=== PATIENT | male | born 1985 | race African-American/Black ===

== ENCOUNTER 2017-08-06 09:04 | Emergency (ER) | payer OTHER ==
[~2017-08-06] VITALS: Ht 185.4 cm; Wt 105.9 kg
[2017-08-06 09:14] VITALS: BP 135/83; PULSE 75; TEMP 36.9; O2SAT 99; Ht 185.4 cm; Wt 105.9 kg
[2017-08-06] MEDS ORDERED: MIRT15TA PO (09:35)
[2017-08-06] MEDS ORDERED: ESCI10TA17 PO (09:35)
[2017-08-06] MEDS ORDERED: ZOLP10TA PO (09:35)
[2017-08-06] MEDS ORDERED: PENI500T2 PO (10:10)
--- NOTE | 2017-08-06 17:54 | EMERGENCY ROOM VISIT NOTE ---
History Report prepared by Maria M: Constance Mir Under the Supervision of: Dr. Jeff Monroy M.D. First contact with patient: 09:42 Chief Complaint: OTHER COMPLAINT Stated Complaint: LUMP IN NECK-UNDER CHIN, VERY PAINFUL History of Present Illness The patient is a 31 year old male who presents to the Emergency Room with complaints of a worsening neck pain for the past week. Last week the front of his neck was sore and swollen bilaterally. Yesterday he noticed a painful lump on the right side of his neck. He rates his pain as a 6/10 in severity. He states that for the past week he has had a productive cough and sore throat. He has been taking ibuprofen for his pain and has had some relief. He has not been sleeping well for the past couple of days due to his symptoms. The patient denies fevers, congestion, visual symptoms, eye pain, dental pain, vomiting, and testicular pain. His immunizations are up to date and he has not been exposed to mumps. Source of History: patient Onset: 1 week ago Position: neck Symptom Intensity: 6/10 Quality: other (sore) Timing: worsening Modifying Factors (Relieving): ibuprofen Associated Symptoms: + sorethroat, + cough, No fevers, No vomiting Note: Pt denies congestion, visual symptoms, dental pain, and testicular pain. Review of Systems See HPI for pertinent positives & negatives. A total of 10 systems reviewed and were otherwise negative. Past Medical & Surgical Medical Problems: (1) Hx of traumatic brain injury Family History No pertinent history stated. Social History Smoking Status: Current Every Day Smoker Current/Historical Medications Scheduled Mirtazapine (Remeron), 15 MG PO HS Penicillin V Potassium (Veetids), 500 MG PO TID Zolpidem Tartrate (Ambien), 10 MG PO HS Scheduled PRN Escitalopram (Lexapro), 10 MG PO UD PRN for PANIC ATTACK Allergies Coded Allergies: No Known Allergies (Unverified , 08/06/17) Physical Exam Vital Signs Date Time Temp Pulse Resp B/P (MAP) Pulse Ox O2 Delivery O2 Flow Rate FiO2 08/06/17 09:14 36.9 75 18 135/83 99 Room Air Physical Exam Constitutional: Vital signs reviewed. Eyes: Pupils are equal round reactive to light. Conjunctiva are noninjected. ENT: Pharynx erythematous without exudate. Mucous membranes are moist. Neck supple without meningeal signs, right anterior cervical lymphadenopathy measuring 2cm with mild tenderness. Respiratory: Clear to auscultation bilaterally. Breath sounds are equal bilaterally. Cardiovascular: Regular rate and rhythm. No rubs or gallops. GI: Soft, nondistended and nontender. Bowel sounds are present. Musculoskeletal: No peripheral edema. Integumentary: No cyanosis. Neurological: The patient is awake and alert. No focal deficits. Psychiatric: Normal affect. Medical Decision & Procedures Laboratory Results Date/Time Source Procedure Growth Status 08/06/17 09:49 Throat Group A Streptococcus Screen - Final SPECIMEN POSITIVE FOR GROUP A BETA ST... Complete 08/06/17 09:49 Throat Group A Streptococcus Screen (ARNUL[facility]) - Final Complete ED Course 0942: The patient was evaluated in room B5. A complete history and physical exam was performed. 1003: I reassessed the patient at this time. He is resting comfortably. I discussed the results and treatment plan with patient. I answered all pertaining questions that he had. He expressed understanding and verbalized agreement. The patient will be discharged home. Medical Decision This is a 31-year-old male presents with cold symptoms and neck pain. Differential diagnosis includes strep pharyngitis, cervical lymphadenopathy, viral syndrome, mass .I did perform a limited focused review of portions of the patient's old chart on the electronic medical record. The patient has had no prior visits to this hospital. I did evaluate the patient as noted above. I did obtain a rapid strep test. This was positive. I did discuss the test results with the patient. He was discharged with a prescription for 10 days of penicillin. Medication Reconcilliation Current Medication List: was personally reviewed by me Blood Pressure Screening Patient's blood pressure: Elevated blood pressure Blood pressure disposition: Elevated BP felt to be situational, Referred to PCP Impression Primary Impression: Strep pharyngitis Scribe Attestation The scribe's documentation has been prepared under my direct and personally reviewed by me in its entirety. I confirm that the note above accurately reflects all work, treatment, procedures, and medical decision making performed by me. Departure Information Dispostion Home / Self-Care Prescriptions Penicillin V Potassium (VEETIDS) 500 Mg Tab 500 MG PO TID for 10 Days, #30 TAB Prov: Jeff Monroy M.D. 08/06/17 Referrals No Doctor, Assigned (PCP) Forms HOME CARE DOCUMENTATION FORM, IMPORTANT VISIT INFORMATION, WORK / SCHOOL INSTRUCTIONS Patient Instructions ED Strep Pharyngitis [place], My [facility] Additional Instructions You have been examined and treated today on an emergency basis only. This is not a substitute for, or an effort to provide, complete comprehensive medical care. It is impossible to recognize and treat all injuries or illnesses in a single emergency department visit. It is therefore important that you follow up closely with your physician. Call as soon as possible for an appointment. Return for worsening symptoms or if you develop fever, vomiting, difficulty breathing or any other concerning symptoms.
== END 2017-08-06 10:29 | disposition home or self-care (01) ==
LOC: C.EDB 09:06
DX: J02.0 Streptococcal pharyngitis (principal)